=== PATIENT | female | born 1980 | race Caucasian/White ===

== ENCOUNTER 2021-02-11 11:07 | Emergency (ER) | payer OTHER ==
[~2021-02-11] VITALS: Ht 157.5 cm; Wt 85.3 kg
[2021-02-11] MEDS ORDERED: HYDROCODON-ACE1 EA10 PO (15:09)
== END 2021-02-11 15:40 | disposition home or self-care (01) ==
LOC: ED 11:07
DX: S16.1XXA Strain of muscle, fascia and tendon at neck level, initial encounter (principal); N26.1 Atrophy of kidney (terminal); K86.2 Cyst of pancreas; V03.90XA Pedestrian on foot injured in collision with car, pick-up truck or van, unspecified whether traffic or nontraffic accident, initial encounter; Z88.0 Allergy status to penicillin
CPT/HCPCS: 70450; 71260; 72125; 74177; 80053; 81001; 82150; 82550; 83605; 83690; 84703; 85025; 86850; 86900; 86901; 96375; 96376; 99284-25; J1170; J1885; J2405; Q9967